=== PATIENT | male | born 1985 | race Caucasian/White ===

== ENCOUNTER → 2022-10-01 | Outpatient (REF) | payer SELFPAY ==
[2022-10-01 17:34] LABS: CHOLESTEROL RISK RATIO 4.56 (<5); HDL CHOLESTEROL 41.4 MG/DL (>40); LDL CHOLESTEROL 121.8 MG/DL (<100)
== END ==
LOC: M LAB REF 16:33
PROVIDERS: ATTEND Nurse Practitioner Family
DX: E66.9 Obesity, unspecified (principal)

== ENCOUNTER → 2024-01-23 | Outpatient (REF) | payer SELFPAY ==
[2024-01-23 10:20] LABS: SEMEN APPEARANCE OPAQUE (OPAQUE); SEMEN VISCOSITY LIQUID (LIQUID); SEMEN VOLUME 3.4 ml (2.0-5.0); WBC CONCENTRATION <=1 M/ml (<=1 M/ml)
== END ==
LOC: M LAB REF 10:05
PROVIDERS: ATTEND Family Medicine
DX: Z30.2 Encounter for sterilization (principal)

== ENCOUNTER → 2024-06-17 | Outpatient (CLI) | payer OTHER | LOC: M WUC 09:09 | PROVIDERS: ATTEND Nurse Practitioner Family | DX: M54.50 Low back pain, unspecified (principal); M47.817 Spondylosis without myelopathy or radiculopathy, lumbosacral region ==

== ENCOUNTER 2024-11-09 09:04 | Emergency (ER) | payer OTHER ==
[~2024-11-09] VITALS: Ht 170.2 cm; Wt 86.5 kg
[~2024-11-09 09:04] MED LIST: LOSA50TA5
[2024-11-09] MEDS ORDERED: KETOROLAC 30 MG/ML 1ML VIAL IM ONE (13:15)
[2024-11-09] MEDS: ACETAMINOPHEN 500 MG TAB PO ONE (13:32)
[2024-11-09] MEDS: diazePAM 5MG TABLET PO ONE (13:32)
[2024-11-09] MEDS: PERCOCET 5MG/325MG TAB PO ONE (14:49)
[2024-11-09] MEDS: methylPREDNISolone 125MG 2ML VIAL IM ONE (16:48)
[2024-11-09 17:58] VITALS: BP 138/89; TEMP 98.3; O2SAT 98
[2024-11-09] MEDS ORDERED: GABA-1172 PO (18:35)
[2024-11-09] MEDS ORDERED: MEDR4PAK PO (18:36)
[2024-11-09] MEDS: GABAPENTIN 300 MG CAP PO ONE (18:46)
== END 2024-11-09 18:56 | disposition home or self-care (01) ==
LOC: M ED 09:04 → EDBD 09:04 → M ED 18:56
DX: M54.16 Radiculopathy, lumbar region (principal); I10 Essential (primary) hypertension; M47.9 Spondylosis, unspecified; M54.30 Sciatica, unspecified side; F17.200 Nicotine dependence, unspecified, uncomplicated; Z79.899 Other long term (current) drug therapy
CPT/HCPCS: 96372; 99284; J2919